=== PATIENT | female | born 1950 | race Caucasian/White ===

== ENCOUNTER 2018-10-04 13:51 | Outpatient (RCR) | payer SELFPAY ==
--- NOTE | 2019-01-31 11:45 | HP.PT.NRP ---
HP - Discharge Summary (1) - Patient Information SUKH NOBLE was seen in my office for initial evaluation on . The following Plan of Care was established for this patient: This patient was last seen in our office . Pertinent comments regarding their Physical therapy will appear below: At this point I will be discontinuing this patient from physical therapy. I would be happy to see this patient again in the future if found appropriate by the physician. Thank you! STEVE KumarT
== END 2018-10-04 19:00 | disposition home or self-care (01) ==
LOC: PT 13:51
PROVIDERS: Family Provider Family Medicine; PCP Family Medicine
DX: R69 Illness, unspecified (principal)

== ENCOUNTER 2019-04-27 16:30 | Outpatient (RCR) | payer SELFPAY ==
--- NOTE | 2019-10-03 10:54 | HP.PT.NRP ---
SUKH NOBLE was seen in my office for initial evaluation on . The following Plan of Care was established for this patient: This patient was last seen in our office . Pertinent comments regarding their Physical therapy will appear below: Self Pay Dry Needle-dc At this point I will be discontinuing this patient from physical therapy. I would be happy to see this patient again in the future if found appropriate by the physician. Thank you! STEVE KumarT
== END 2019-04-27 19:00 | disposition home or self-care (01) ==
LOC: PT 16:30
PROVIDERS: Family Provider Family Medicine; PCP Family Medicine
DX: R69 Illness, unspecified (principal)

== ENCOUNTER → 2020-01-31 12:26 | Outpatient (CLI) | payer MEDICARE, SELFPAY ==
[2015-11-20 01:56] VITALS: BMI 30.6
[2020-01-31 13:56] LABS: BUN 13 mg/dL (7-18); Creatinine, Serum 0.84 mg/dL (0.55-1.02); EST Glomerular Filtration Rate 71 mL/min (>60); Est Glom Filt Rate - Afr Amer 86 mL/min (>60)
== END ==
PROVIDERS: PCP Family Medicine; Visit Provider Nurse Practitioner Family
DX: Z79.899 Other long term (current) drug therapy (principal)
CPT/HCPCS: 36415; 82565; 84520

== ENCOUNTER 2021-07-01 09:14 | Emergency (ER) | payer OTHER, MEDICARE, SELFPAY ==
[2021-07-01 09:15] VITALS: BP 178/88; PULSE 72; RESP 16; TEMP 35.8; O2SAT 96; BMI 25.1
--- NOTE | 2021-07-01 09:39 | EDS_ITS ---
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 Another gentleman came in with a great Vlad as she asked if she could pet the dog. She was petting the dog when suddenly it turned and bit her. She is a large gaping laceration to the mid lower lip. She denies any other injury. [facility] Medical History Hypertension Home Medications gabapentin 300 mg PO TID 05/06/15 [History Last Taken Unknown] lansoprazole [Prevacid] 30 mg PO DAILY 05/06/15 [History Last Taken Unknown] ramipril 2.5 mg PO DAILY 05/06/15 [History Last Taken Unknown] simvastatin 20 mg PO QHS 05/06/15 [History Last Taken Unknown] cholecalciferol (vitamin D3) [Vitamin D3] 1,000 unit PO DAILY 05/21/15 [History Last Taken Unknown] amoxicillin-pot clavulanate 1 tab PO BID #10 tab 07/01/21 [Rx Last Taken Unknown] aspirin 81 mg PO DAILY 07/01/21 [History Last Taken Unknown] meloxicam 15 mg PO DAILY 07/01/21 [History Last Taken Unknown] oxycodone 7 mg PO Q4H PRN PRN 07/01/21 [History Last Taken Unknown] Allergy/AdvReac Type Severity Reaction Status Date / Time No Known Allergies Allergy Verified 07/01/21 09:16 Surgical History History of back surgery Hx of right knee surgery Social History Smoking Status: Former smoker ROS ROS ED Constitutional Constitutional ED: Denies chills or fever(s) Eyes Eyes: Denies change in vision ENT ENT ED: Denies sore throat Cardiovascular Cardiovascular: Denies chest pain Respiratory/Chest Respiratory/Chest: Denies cough or dyspnea Gastrointestinal Gastrointestinal: Denies abdominal pain, diarrhea, nausea or vomiting Genitourinary Genitourinary ED: Denies dysuria Musculoskeletal Musculoskeletal: Denies back pain Integumentary Denies rash Neurologic Neurologic: Denies headache(s) or weakness Allergic/Immunologic Allergic/Immunologic ED: Denies urticaria EXAM Physical Exam Const Vital Signs: 07/01/21 09:15 Temperature 96.4 F L Temperature Source Temporal Pulse Rate 72 Respiratory Rate 16 Blood Pressure 178/88 H Blood Pressure Mean 118 Pulse Ox 96 Oxygen Delivery Method Room Air Positive well nourished HEENT Reports moist mucous membranes HEENT Narrative: Teeth are stable. There is a 2 cm gaping laceration to the midportion of the lower lip. Eyes PERRL and EOMs intact bilaterally Neck supple Chest Wall inspection of chest normal and palpation of chest normal Resp normal respiratory effort and clear to auscultation bilaterally Cardio regular rate and regular rhythm GI non-tender Palpation: soft Extremity normal to inspection Neuro oriented x3 Sensorium / Orientation: alert Psych mental status grossly normal MDM MDM MDM Narrative Medical decision making narrative: Because of the gaping nature of the wound sutures will be required. Patient was informed of the risk of infection. She will be covered with 5 days of antibiotics. Initial dose of Augmentin given here. Treatment and Re-Evaluation Comments:: Wound cleansed and anesthetized with 2 cc of 1% lidocaine. Wound is cleansed and irrigated. Skin is closed with 4 simple entered sutures of 5-0 Vicryl. Prescription for additional Augmentin to be sent to the pharmacy for her. Procedures Lacerations Lip laceration: Length: 0.79 in Depth: Sub Q Suture Information: Vicryl, Simple and 5-0 Discharge Plan Triage Chief Complaint: Bite ED Provider: Mary Lou Escobedo Dx/Rx/DC Orders Clinical Impression: Dog bite, Laceration of lip Instructions: ED Dog Bite, ED Laceration, Lip or Mouth Prescriptions: New amoxicillin-pot clavulanate 875-125 mg tablet 1 tab PO BID Qty: 10 RF: 0 No Action simvastatin 20 MG tablet 20 mg PO QHS RF: 0 ramipril 2.5 MG capsule 2.5 mg PO DAILY RF: 0 lansoprazole [Prevacid] 30 MG capsule 30 mg PO DAILY RF: 0 gabapentin 300 MG capsule 300 mg PO TID RF: 0 cholecalciferol (vitamin D3) [Vitamin D3] 1,000 UNIT tablet 1,000 unit PO DAILY RF: 0 meloxicam 15 mg tablet 15 mg PO DAILY RF: 0 aspirin 81 mg Tablet 81 mg PO DAILY RF: 0 oxycodone 5 MG tablet 7 mg PO Q4H PRN PRN (Reason: Pain) RF: 0 Primary Care Provider: Darius Velez Referrals: Darius Velez DO [Primary Care Provider] - 1-2 Weeks Disposition Disposition: Home, Self Care
[2021-07-01] MEDS: Amox/Clavulanate 875 MG Tablet PO (09:50)
[2021-07-01] MEDS: Lidocaine 1% (20 ml mdv) 20 ML Vial INFILT (10:23)
== END 2021-07-01 23:59 | disposition home or self-care (01) ==
LOC: ED 10:15
PROVIDERS: Emergency Provider Emergency Medicine; PCP Family Medicine; Visit Provider Emergency Medicine
DX: S01.511A Laceration without foreign body of lip, initial encounter (principal); I10 Essential (primary) hypertension; Z87.891 Personal history of nicotine dependence; W54.0XXA Bitten by dog, initial encounter; Z79.82 Long term (current) use of aspirin; Z79.899 Other long term (current) drug therapy
CPT/HCPCS: 12011; 99284

== ENCOUNTER 2021-10-06 09:02 | Day surgery (SDC) | payer MEDICARE, SELFPAY ==
[2021-10-06 09:31] VITALS: BP 137/52; PULSE 60; RESP 18; TEMP 36.1; O2SAT 95; BMI 24.4
[2021-10-06] MEDS: Lactated Ringers 1,000 ML 15 ML IV (09:44)
[2021-10-06] MEDS: Cefazolin 2 GM in 0.9% Normal Saline 100 ML IV (10:40)
[2021-10-06] MEDS: Bupivacaine Mpf 0.5% 30 ML VIAL (10:58)
[2021-10-06] MEDS: Lidocaine 2% (20 ml mdv) 20 ML Vial (10:58)
--- NOTE | 2021-10-06 11:00 | RAD_ITS ---
PROCEDURE: Spinal cord stimulator implant. DATE OF EXAMINATION: 10/06/2021 INDICATION: Female, 71 years old. Chronic low back pain. FLUOROSCOPY TIME (if supplied): (4 minutes) minutes/seconds. 9 images were obtained. RAD/Lumbar Spine 2 or 3 Views IMPRESSION: Intraoperative imaging provided for spinal cord stimulator placement. Electronically Signed: Cole Staton MD at 12:56 EDT ,
[2021-10-06] MEDS: Bacitracin 500 UNITS/GM PACKET (12:22)
--- NOTE | 2021-10-06 12:37 | PCM.OPRPT ---
Report of Operation Date of Procedure: 10/06/21 Description of Surgical Findings:: Pre-Operative Diagnosis: Lumbosacral radiculopathy, lumbosacral degenerative disc disease, lumbosacral spinal stenosis, postlaminectomy syndrome of the lumbar spine Post-Operative Diagnosis: Lumbosacral radiculopathy, lumbosacral degenerative disc disease, lumbosacral spinal stenosis, postlaminectomy syndrome of the lumbar spine Surgery/Procedure Performed:: 1. Spinal cord stimulator thoracolumbar leads placement x2, 2- spinal cord stimulator Medtronic intellus generator placement #3 spinal cord stimulator generator pocket creation at the right gluteal region #4 spinal cord stimulator simple programming, 5-intraoperative fluoroscopic interpretation ANESTHESIA: MAC COMPLICATIONS: None BLOOD LOSS: <50 ml Implanted device: Spinal cord stimulator lead [id number] lot number [id number], lead #2 [id number] lot number [id number] Medtronic spinal cord stimulator generator intellus serial number [id number] PROCEDURE IN DETAIL: History and physical today was reviewed. Risks and benefits of procedure explained. The patient understood, agreed to procedure, informed consent was obtained. IV inserted per routine protocol. The patient was taken to the operating room, placed in the prone position with a pillow positioned underneath the abdomen. A 2 g of Ancef IV piggyback was infused per anesthesia. The lower back and left gluteal area was prepped and draped in a sterile fashion using iodine x3 Ioban was placed. The C-arm was brought in position for AP view at the L1-2 vertebral bodies under direct visualization fluoroscopy on a true AP view the L1-2 interlaminar space was identified skin and subcutaneous tissue and size approximately 10 cc of a mix of 2% lidocaine and 0.25% Marcaine using a 25-gauge regular needle followed by a 25-gauge 3-1/2 inch spinal needle towards the interlaminar space at L1-2, the skin and subcutaneous tissue were then anesthetized and using an 11-gauge blade was then taken down to the skin and subcutaneous tissue using a 14-gauge 3-1/2 inch Touhy needle provided by the Mob[employer] kit the needle was passed through the skin towards the interlaminar space at L1-2 and a paramedian approach the needle was then advanced under direct visualization fluoroscopy towards the interlaminar space at L1-2 [id number] technique was then carried to air towards the interlaminar space at L1-2 once the tip of the needle was in the epidural space and loss of resistance was encountered to air and after confirmation of AP as well as oblique view of the spinal cord stimulator lead was then advanced under direct visualization fluoroscopy to be at the tip of the lead at top of T8 and the bottom of the lead around mid T10 after confirmation of AP as well as lateral view to confirm correct placement of the lead in the posterior compartment of the epidural space the previous procedure was then repeated to the left the previous lead at L1-2 interlaminar space the second lead was then inserted under direct visualization with fluoroscopy to be at the mid T8 and mid T10 area the leads were were then connected to the external neurostimulator and patient was then awakened to confirm satisfactory coverage of the painful area once satisfactory coverage was then achieved the stylette of each needle was then removed and the skin and subcutaneous tissue on to the left of the paramedian needles was then taken anesthetized with a total of 10 cc of the previous mixture of 0.25% Marcaine and 2% lidocaine using a 25-gauge regular needle the incision was then taken down through the skin and subcutaneous tissue towards the fascia making sure hemostasis was then maintained via cautery, the spinal cord stimulator leads were then passed through the above incision and secured using the biwing and sutured down with a 2-0 silk to the fascia at that level the spinal cord stimulator leads were then tunneled via a tunneler provided by the [employer] kit towards the previously incised spinal cord stimulator battery at the right gluteal region skin and subcutaneous tissue were anesthetized with approximately 10 cc of a mix of 2% lidocaine and 0.25% Marcaine using a 25 gauge regular needle, skin and subcutaneous tissue was then taken down with the 11-gauge blade hemostasis was maintained with Bovie and direct pressure the incision was then taken down to the fascia and the battery was then secured with the 2-0 silk sutures that were the spinal cord stimulator leads the upper lead was then marked the new until spinal cord stimulator battery was then provided Via [employer] kit the battery was then reattached of the spinal cord stimulator make ensure that the left is attached to the top position from 0-7 electrodes and the bottom from 8-15 electrodes once impedance was then checked to be in the proper average number the intellus battery was then inserted into the pocket and impedance with when checked again the pocket was then inspected to confirm hemostasis in place, the intellus battery inserted into a Tyrx pouch and was then secured to the fascia using a 2-0 silk to the upper eyes of the battery confirming an upward writing of the intellus facing posterior, once complete confirmation the battery was then placed in the position and the the left mid paramedian and the gluteal incisions were then closed primarily through a 3-0 Vicryl in a running fashion followed by a 4-0 Monocryl to the skin, hemostasis was then maintained during the procedure the skin was then covered with a Steri-Strips and bacitracin patient was then returned into the supine position in a stable condition and returned to recovery in a stable condition patient experienced no signs or symptoms of intrathecal or intravascular injection patient experienced no paresthesia the procedure was completed without any apparent difficulty any complication the patient appeared to tolerate well, motor as well as sensory function was unchanged from prior to the procedure ASSESSMENT AND PLAN: This is a 71-year-old female with lumbosacral radiculopathy lumbosacral degenerative disc disease lumbosacral spinal stenosis, postlaminectomy syndrome of the lumbar spine status post 1. Spinal cord stimulator thoracolumbar leads placement x2 #2 spinal cord stimulator Medtronic intellus generator placement #3 spinal cord stimulator generator pocket creation at the right gluteal region #4 spinal cord stimulator simple programming, 5-intraoperative fluoroscopic interpretation patient will continue her current medications a prescription was provided to the patient Keflex 500 mg 1 p.o. every 8 hours for 7 days, postop instruction were given in writing to the patient as well as verbally, patient will follow approximately 1 week for reevaluation.
[2021-10-06 12:39] VITALS: BP 137/52; BP 145/70; PULSE 57; RESP 18; TEMP 36.7; O2SAT 98
[2021-10-06 12:45] VITALS: BP 137/52; BP 152/75; PULSE 53; RESP 16; O2SAT 98
[2021-10-06 12:50] VITALS: BP 137/52; BP 155/80; PULSE 53; RESP 16; O2SAT 96
[2021-10-06 13:00] VITALS: BP 137/52; BP 168/64; PULSE 54; RESP 16; TEMP 36.3; O2SAT 99
[2021-10-06 13:37] VITALS: BP 137/52
== END 2021-10-06 14:24 | disposition home or self-care (01) ==
LOC: SDC 09:05 → AC 09:06
PROVIDERS: PCP Family Medicine; Referring Provider Anesthesiology Pain Medicine; Visit Provider Anesthesiology Pain Medicine
PROC: (CPT 63685; principal; 2021-10-06 10:25)
DX: Z45.42 Encounter for adjustment and management of neurostimulator (principal); M51.17 Intervertebral disc disorders with radiculopathy, lumbosacral region; M96.1 Postlaminectomy syndrome, not elsewhere classified; M48.07 Spinal stenosis, lumbosacral region; K21.9 Gastro-esophageal reflux disease without esophagitis; I10 Essential (primary) hypertension; E78.5 Hyperlipidemia, unspecified; Z79.899 Other long term (current) drug therapy; Z87.891 Personal history of nicotine dependence; M53.3 Sacrococcygeal disorders, not elsewhere classified; Z79.891 Long term (current) use of opiate analgesic; M79.7 Fibromyalgia
CPT/HCPCS: 63685; 63650 ×2; 95971; 72100; 76000; C1778; C1820; J7120; J3490

== ENCOUNTER 2023-01-10 21:23 | Observation (INO) | payer MEDICARE, SELFPAY ==
[2023-01-10 21:24] VITALS: TEMP 35.8
[2023-01-10 21:28] VITALS: BP 177/75; PULSE 71; RESP 18; O2SAT 97
[2023-01-10 22:00] VITALS: BP 168/80; PULSE 67; RESP 18; O2SAT 93
[2023-01-10 22:05] LABS: Absolute Neutrophil Count 6.4 X10^3/uL (2.0-7.7); Basophil# 0.08 X10^3/uL; Basophil% 0.8 % (0-1); Eosinophil# 0.18 X10^3/uL; Eosinophils% 1.7 % (0-5); Hematocrit 41.7 % (37-47); Hemoglobin 14.2 g/dL (12.0-15.0); Lymphocyte % 25.6 % (19-41); Mean Corp Hgb Conc 34.1 g/dL (32-36); Mean Corpuscular Hgb 32.8 pg (27.0-32.0); Mean Corpuscular Volume 96.3 fL (81-99); Mean Platelet Vol. 10.1 fl (6.2-12.0); Monocyte# 1.04 X10^3/uL; Monocyte% 9.8 % (0-10); NRBC Flagged by Analyzer 0 % (0-5); Neutrophil # 6.44 X10^3/uL (2.7-7.7); Platelet Count 273 K/mm3 (150-450); RBC Distribution Width SD 53.1 fl (35.1-43.9); Red Blood Count 4.33 M/mm3 (4.2-5.4); White Blood Count 10.6 K/mm3 (4.4-11.0)
--- NOTE | 2023-01-10 22:07 | EDS_ITS ---
HPI History of Present Illness Chief Complaint: Syncope Informant: patient Onset/Context/Timing Onset: Today Narrative Narrative: Patient presents secondary to syncope. Patient states she was outside working in the yard all day and not drinking much water. She went to the [facility] and had 1 twisted tea. After sitting for about 45 minutes she stood up and felt lightheaded and dizzy. Bystanders later to the ground and had a very brief syncopal episode. She denies any palpitations or chest pain. She states she has numbness before when she gets dehydrated. [facility] Medical History Alcohol use Arthritis Excessive bleeding Former smoker Gastric reflux High cholesterol Hypertension Spinal cord stimulator status Wears contact lenses Wears dentures Wears glasses Home Medications gabapentin 300 mg capsule 300 mg PO TID 05/06/15 [History Last Taken Unknown] ramipril 2.5 mg capsule 5 mg PO DAILY 05/06/15 [History Last Taken 10/06/21 5 mg] simvastatin 20 mg tablet 40 mg PO QHS 05/06/15 [History Last Taken Unknown] cholecalciferol (vitamin D3) 25 mcg (1,000 unit) tablet (Vitamin D3) 1,000 unit PO DAILY 05/21/15 [History Last Taken Unknown] aspirin 81 mg tablet 81 mg PO DAILY 07/01/21 [History Last Taken Unknown] meloxicam 15 mg tablet 15 mg PO DAILY 07/01/21 [History Last Taken Unknown] hydrocodone 7.5 mg-acetaminophen 325 mg tablet 1 tab PO TID PRN PRN Pain 10/03/21 [History Last Taken Unknown] omeprazole 40 mg capsule,delayed release 40 mg PO DAILY 10/03/21 [History Last Taken 10/06/21 40 mg] Allergy/AdvReac Type Severity Reaction Status Date / Time No Known Allergies Allergy Verified 01/10/23 21:26 Surgical History History of back surgery History of colonoscopy Hx of right knee surgery Social History Smoking Status: Current some day smoker tobacco type: cigarettes and cigars ROS ROS ED Constitutional Constitutional ED: Denies chills or fever(s) Eyes Eyes: Denies change in vision ENT ENT ED: Denies rhinorrhea or sore throat Cardiovascular Cardiovascular: Denies chest pain or palpitations Respiratory/Chest Respiratory/Chest: Denies cough or dyspnea Gastrointestinal Gastrointestinal: Denies abdominal pain, nausea or vomiting Genitourinary Genitourinary ED: Denies dysuria Musculoskeletal Musculoskeletal: Denies back pain or extremity pain Integumentary Denies Abrasions or rash Neurologic Neurologic: Denies headache(s) or weakness Psychiatric Psychiatric: Denies anxiety or depression Allergic/Immunologic Allergic/Immunologic ED: Denies lip swelling or urticaria EXAM Physical Exam Const Vital Signs: 01/10/23 21:24 01/10/23 21:28 01/10/23 21:57 Temperature 96.4 F L Temperature Source Temporal Pulse Rate Respiratory Rate Respiratory Effort Normal Non-Labored Respiratory Pattern Normal Blood Pressure Blood Pressure Mean Pulse Ox Oxygen Delivery Method Room Air Room Air 01/10/23 22:00 01/10/23 21:28 Temperature Temperature Source Pulse Rate 67 71 Respiratory Rate 18 18 Respiratory Effort Respiratory Pattern Blood Pressure 168/80 H 177/75 H Blood Pressure Mean 109 109 Pulse Ox 93 97 Oxygen Delivery Method Room Air Room Air Positive well nourished and well developed General Appearance ED: well developed HEENT Reports normocephalic and head/scalp atraumatic Eyes PERRL and EOMs intact bilaterally Neck supple Chest Wall inspection of chest normal and palpation of chest normal Resp normal respiratory effort and clear to auscultation bilaterally Cardio regular rate and regular rhythm GI normal to inspection, nondistended, normoactive bowel sounds Palpation: soft Extremity normal to inspection Neuro oriented x3 and no sensory deficits noted Sensorium / Orientation: alert Motor Exam: strength 5/5 throughout Psych mental status grossly normal Skin no rashes or lesions noted MDM MDM MDM Narrative Medical decision making narrative: Patient placed on motor vehicles supervisor. EKG obtained to evaluate for cardiac arrhythmia/ischemia. Labwork obtained to evaluate for leukocytosis, anemia, and electrolyte derangement. Patient has a liter IV fluids hanging from EMS and this liter will be continued. Lab Data Attestation: I reviewed the patient's lab results. Labs: Laboratory Results - last 24 hr 01/10/23 21:30 WBC 10.6 RBC 4.33 Hgb 14.2 Hct 41.7 MCV 96.3 MCH 32.8 H MCHC 34.1 RDW Std Deviation 53.1 H RDW Coeff of Yudi 15.0 H Plt Count 273 MPV 10.1 Immature Gran % (Auto) 1.100 H Neut % (Auto) 61.0 Lymph % (Auto) 25.6 [place] % (Auto) 9.8 Eos % (Auto) 1.7 Baso % (Auto) 0.8 Absolute Neuts (auto) 6.4 Absolute Lymphs (auto) 2.70 Nucleated RBC % 0 Sodium 125 L Potassium 4.0 Chloride 95 L Carbon Dioxide 25.0 Anion Gap 5 BUN 14 Creatinine 1.24 H Est GFR (MDRD) Af Amer 54 L Est GFR (MDRD) Non-Af 45 L BUN/Creatinine Ratio 11.3 Glucose 125 H Calcium 8.6 Treatment and Re-Evaluation :: On repeat evaluation patient feels well. EKG is sinus at 70 with no acute ischemia. CBC reveals normal white count at 10.6 and normal hemoglobin of 14.2. Chemistry studies reveal sodium low at 125. I do not have records here since 2014, but was able to find outside records from 2019. At that time her sodium was 139. Her BUN is 14 and her creatinine is 1.24. In 2020 her creatinine was 0.84. Patient has completed the 1 L of IV fluids from EMS. I will continue her IV fluids at 150. Given her hyponatremia with a syncopal episode I did recommend observation overnight for further hydration. She also has evidence of mild MADISON. I will speak with the hospitalist. Discharge Plan Triage Chief Complaint: Syncope ED Provider: Mary Lou Escobedo Dx/Rx/DC Orders Clinical Impression: MADISON (acute kidney injury), Hyponatremia, Syncope Prescriptions: No Action simvastatin 20 MG tablet 40 mg PO QHS Patient Comments: cholesterol ramipril 2.5 MG capsule 5 mg PO DAILY gabapentin 300 MG capsule 300 mg PO TID Patient Comments: nerve pain cholecalciferol (vitamin D3) [Vitamin D3] 1,000 UNIT tablet 1,000 unit PO DAILY Patient Comments: SUPPLEMENT meloxicam 15 mg tablet 15 mg PO DAILY aspirin 81 mg Tablet 81 mg PO DAILY omeprazole 40 mg Capsule,Delayed Release(Dr/Ec) 40 mg PO DAILY hydrocodone-acetaminophen 7.5-325 mg tablet 1 tab PO TID PRN PRN (Reason: Pain) Patient Comments: 1 TABLET BY MOUTH 3 TIMES A DAY NEEDED FOR PAIN Primary Care Provider: Darius Velez Referrals: Darius Velez DO [Primary Care Provider] - Disposition Disposition: Acute Care Hospital [facility]
[2023-01-10 22:22] LABS: Anion Gap 5 (5-15); BUN 14 mg/dL (7-18); BUN/Creat Ratio 11.3 RATIO (10-20); Calcium,Total 8.6 mg/dL (8.5-10.1); Chloride 95 mmol/L (98-107); Creatinine, Serum 1.24 mg/dL (0.55-1.02); EST Glomerular Filtration Rate 45 mL/min (>60); Est Glom Filt Rate - Afr Amer 54 mL/min (>60); Glucose 125 mg/dL (74-106); Sodium Level 125 mmol/L (136-145)
[2023-01-10 22:52] VITALS: BP 167/88; PULSE 76; RESP 18; O2SAT 97
--- NOTE | 2023-01-10 23:01 | PCM.HP.STD ---
HPI - General General Date of Admission: 01/10/23 Date of Service: 01/11/23 Chief Complaint: Syncope HPI Narrative SUKH NOBLE, is a 72 F with a significant history of hypertension, GERD, chronic back pain with spinal stimulator who presents to the emergency department for fall. Reportedly patient went to [employer] where she had twisted tea. Of note she did not take excessive amounts more than she usually takes. She got up from a sitting position and became lightheaded. She was staring to space. She told bystanders that she felt lightheaded. Before she realized she had been laid on the ground by bystanders.. At the emergency department patient was found to have low sodium and increase in the kidney function. She reported she easily get dehydrated. [facility] Medical History Alcohol use Arthritis Chronic pain Excessive bleeding Former smoker Gastric reflux High cholesterol Hypertension Spinal cord stimulator status Wears contact lenses Wears dentures Wears glasses Home Medications gabapentin 300 mg capsule 300 mg PO TID 05/06/15 [History Last Taken Unknown] ramipril 2.5 mg capsule 5 mg PO DAILY 05/06/15 [History Last Taken 10/06/21 5 mg] simvastatin 20 mg tablet 40 mg PO QHS 05/06/15 [History Last Taken Unknown] cholecalciferol (vitamin D3) 25 mcg (1,000 unit) tablet (Vitamin D3) 1,000 unit PO DAILY 05/21/15 [History Last Taken Unknown] aspirin 81 mg tablet 81 mg PO DAILY 07/01/21 [History Last Taken Unknown] meloxicam 15 mg tablet 15 mg PO DAILY 07/01/21 [History Last Taken Unknown] hydrocodone 7.5 mg-acetaminophen 325 mg tablet 1 tab PO TID PRN PRN Pain 10/03/21 [History Last Taken Unknown] omeprazole 40 mg capsule,delayed release 40 mg PO DAILY 10/03/21 [History Last Taken 10/06/21 40 mg] latanoprost 0.005 % eye drops 1 drp ophthalmic (eye) DAILY 01/10/23 [History Last Taken Unknown] ramipril 10 mg capsule 10 mg PO DAILY 01/10/23 [History Last Taken Unknown] simvastatin 40 mg tablet 40 mg PO QHS 01/10/23 [History Last Taken Unknown] tretinoin 0.1 % topical cream applic topical 01/10/23 [History Last Taken Unknown] Allergy/AdvReac Type Severity Reaction Status Date / Time No Known Allergies Allergy Verified 01/10/23 21:26 Family History Other Cancer Surgical History History of back surgery History of colonoscopy Hx of right knee surgery Social History Smoking Status: Former smoker ROS ROS Narrative Pertinent positives and pertinent negatives as noted in HPI. All other systems were reviewed and are negative Vital Signs Vital Signs Vital Signs: 01/10/23 21:24 01/10/23 21:28 01/10/23 21:57 Temperature 96.4 F L Temperature Source Temporal Pulse Rate Respiratory Rate Respiratory Effort Normal Non-Labored Respiratory Pattern Normal Blood Pressure Blood Pressure Mean Pulse Ox Oxygen Delivery Method Room Air Room Air 01/10/23 22:00 01/10/23 21:28 01/10/23 22:52 Temperature Temperature Source Pulse Rate 67 71 76 Respiratory Rate 18 18 18 Respiratory Effort Respiratory Pattern Blood Pressure 168/80 H 177/75 H 167/88 H Blood Pressure Mean 109 109 114 Pulse Ox 93 97 97 Oxygen Delivery Method Room Air Room Air Room Air Physical Exam Narrative Physical exam: General: Well-nourished, well-developed. Head: Normocephalic, atraumatic, no tenderness Eyes: Vision is grossly intact. EOMI ENT, no trauma, moist mucous membranes, no rhinorrhea Neck: Nontender, No thyromegaly. CVS: Regular rate and rhythm. S1-S2 present. No murmur, gallop or rub. Respiratory : clear to auscultation bilaterally, chest wall nontender Abdomen: Soft, nontender, nondistended, normal bowel sounds, no masses : Deferred Back: Nontender, no CVA tenderness, no midline spinal tenderness, deformities, step-offs Extremities: Nontender full range of motion, no trauma Skin: Normal color, no trauma, abrasions Neuro: Alert, oriented, cranial nerves II through XII grossly intact. Psychiatry: Normal mood. Normal affect. Not depressed. Not anxious. Results Lab / Micro Data 01/11/23 05:10 01/10/23 21:30 Labs: Laboratory Results - last 24 hr 01/10/23 21:30: WBC 10.6, RBC 4.33, Hgb 14.2, Hct 41.7, MCV 96.3, MCH 32.8 H, MCHC 34.1, RDW Std Deviation 53.1 H, RDW Coeff of Yudi 15.0 H, Plt Count 273, MPV 10.1, Immature Gran % (Auto) 1.100 H, Neut % (Auto) 61.0, Lymph % (Auto) 25.6, [place] % (Auto) 9.8, Eos % (Auto) 1.7, Baso % (Auto) 0.8, Absolute Neuts (auto) 6.4, Absolute Lymphs (auto) 2.70, Nucleated RBC % 0, Sodium 125 L, Potassium 4.0, Chloride 95 L, Carbon Dioxide 25.0, Anion Gap 5, BUN 14, Creatinine 1.24 H, Est GFR (MDRD) Af Amer 54 L, Est GFR (MDRD) Non-Af 45 L, BUN/Creatinine Ratio 11.3, Glucose 125 H, Calcium 8.6 Assessment & Plan Assessment/Plan (1) Syncope: QUALIFIERS: Syncope type: unspecified Qualified Code(s): R55 - Syncope and collapse (2) Hyponatremia: (3) MADISON (acute kidney injury): PLAN: Plan Syncope EKG independently reviewed sinus rhythm with no ST or T wave abnormalities. EKG was independently interpreted Echocardiogram ordered. Orthostatic vitals per protocol IV fluids ordered. Hyponatremia and hypochloremia Sodium on presentation was 125. Chloride level of 95 Check uric acid Check urine osmolarity Check urine sodium Check serum osmolality Trend BMP Acute kidney injury Creatinine of 1.24 on presentation. Last Creatinine was from 01/31/2020. And creatinine at time was 0.84. Gentle IV hydration. Avoid nephrotoxic's Chronic back pain Stable Home pain regimen continued. DVT prophylaxis subcutaneous Lovenox ordered Time spent in the patient's overall evaluation,decision-making process, review of diagnostic data, adjustment of management, discussion with other providers, nursing nursing and ancillary staff involved in patient's care documentation, 60 minutes Charges/Coding Visit Charges Inpatient E&M: 62563 Init Hosp L3
[2023-01-10 23:07] VITALS: BP 165/70; PULSE 75; RESP 18; TEMP 36.6; O2SAT 95
[2023-01-10] MEDS: 0.9% Normal Saline 1,000 ML 150 ML IV (23:07)
[2023-01-10 23:08] VITALS: BMI 30.4
[2023-01-11] VITALS (8 sets, daily range): BP systolic 148–188; BP diastolic 72–93; PULSE 60–77; RESP 16–18; TEMP 36.4–36.8; O2SAT 97–98; BMI 28.0
--- NOTE | 2023-01-11 00:37 | ECHOD_ITS ---
Reason For Study: Syncope/Near Syncope Procedure This was a 2D Doppler, Color Flow transthoracic echocardiogram. Exam performed portable in patient room. Left Ventricle Normal LV size. Left ventricular systolic function is normal. The left ventricular ejection fraction is 70 %. Diastolic function is indeterminate. Right Ventricle Normal RV size. Normal systolic function. Atria The left and right atria are normal. Bubble contrast study negative for right to left interatrial shunt. Aneurysmal atrial septum. Mitral Valve Trivial mitral valve insufficiency. Tricuspid Valve Normal tricuspid valve. Trivial tricuspid valve insufficiency. Right ventricular systolic pressure estimated to be 28 mmHg. Aortic Valve Mild focal aortic valve thickening. Trisinus/trileaflet aortic valve. Aortic sclerosis, no stenosis. There is no aortic stenosis. Trivial aortic valve insufficiency. Pulmonic Valve The pulmonic valve is not well visualized. Trivial pulmonic valve insufficiency. Great Vessels Normal aortic root. Pericardium/Pleural No pericardial effusion. Medication Performed a rapid injection of agitated mix of 9 cc saline and 1cc air to assess for atrial septal defect. MMode/2D Measurements & Calculations LVIDd: 3.9 cm IVSd: 1.1 cm Ao root diam: 3.4 cm LVIDs: 1.9 cm LVPWd: 1.1 cm RVDd: 3.2 cm FS: 51.4 % LAV(MOD-bp): 33.0 ml LVAd ap4: 23.4 cm2 SV(MOD-sp4): 41.5 ml LAV(MOD-bp) Indexed: 19.5 ml/m2 LVLd ap4: 7.2 cm LAV(MOD-sp2): 37.9 ml EDV(MOD-sp4): 61.5 ml LAV(MOD-sp4): 27.1 ml EDV(sp4-el): 64.3 ml LVAs ap4: 11.6 cm2 LVLs ap4: 5.8 cm ESV(MOD-sp4): 20.1 ml ESV(sp4-el): 19.8 ml EF(MOD-sp4): 67.4 % EF(sp4-el): 69.2 % SV(sp4-el): 44.5 ml LA A4 area: 11.8 cm2 LA dimension(2D): 3.9 cm RA A4 area: 7.3 cm2 TAPSE: 2.0 cm Time Measurements MV dec time: 0.29 sec Doppler Measurements & Calculations MV E max thony: 64.8 cm/sec Lat Peak E' Thony: 7.3 cm/sec Med Peak E' Thony: 5.6 cm/sec MV A max thony: 99.4 cm/sec E/E' lat: 8.9 E/E' med: 11.5 MV E/A: 0.65 MV dec slope: 225.3 cm/sec2 Ao V2 max: 149.7 cm/sec LV V1 max: 114.7 cm/sec Ao max P.0 mmHg LV V1 max P.3 mmHg Ao V2 mean: 97.6 cm/sec LV V1 mean P.2 mmHg Ao mean P.4 mmHg LV V1 mean: 84.8 cm/sec Ao V2 VTI: 33.4 cm LV V1 VTI: 27.8 cm AV (velocity ratio): 0.83 PA V2 max: 103.5 cm/sec TR max thony: 252.0 cm/sec TR max P.4 mmHg ECHO/Echo Complete Interpretation Summary The left ventricular ejection fraction is 70 %. Diastolic function is indeterminate. Aneurysmal atrial septum. Aortic sclerosis, no stenosis. Bubble contrast study negative for right to left interatrial shunt. Ordering Physician: Cristian Asher Referring Physician: Darius Velez Performed By: Lila Sanders, CALI, RVT
[2023-01-11] MEDS: 0.9% Normal Saline 1,000 ML 125 ML IV ×2 (00:57→10:23)
[2023-01-11] MEDS: Gabapentin 300 MG Capsule PO ×2 (05:05→13:34)
[2023-01-11] MEDS: HYDROcodone Bitartrate/Apap 5/325 Tablet PO (05:11)
[2023-01-11 05:49] LABS: Absolute Lymphocyte Count 1.78 X10^3/uL (0.83-4.51); Absolute Neutrophil Count 6.3 X10^3/uL (2.0-7.7); Basophil# 0.07 X10^3/uL; Basophil% 0.8 % (0-1); Eosinophil# 0.16 X10^3/uL; Eosinophils% 1.8 % (0-5); Hematocrit 40.5 % (37-47); Hemoglobin 13.6 g/dL (12.0-15.0); Lymphocyte # 1.78 X10^3/ul (0.83-4.51); Lymphocyte % 19.5 % (19-41); Mean Corp Hgb Conc 33.6 g/dL (32-36); Mean Corpuscular Volume 95.3 fL (81-99); Mean Platelet Vol. 9.8 fl (6.2-12.0); Monocyte# 0.76 X10^3/uL; Monocyte% 8.3 % (0-10); NRBC Flagged by Analyzer 0 % (0-5); Neutrophil # 6.32 X10^3/uL (2.7-7.7); Neutrophil % 69.1 % (47-70); Platelet Count 242 K/mm3 (150-450); RBC Distribution Width CV 15.1 % (11.6-14.6); RBC Distribution Width SD 52.4 fl (35.1-43.9); Red Blood Count 4.25 M/mm3 (4.2-5.4); White Blood Count 9.1 K/mm3 (4.4-11.0)
[2023-01-11 06:27] LABS: Anion Gap 2 (5-15); BUN 11 mg/dL (7-18); BUN/Creat Ratio 12.4 RATIO (10-20); Calcium,Total 8.4 mg/dL (8.5-10.1); Chloride 109 mmol/L (98-107); Creatinine, Serum 0.88 mg/dL (0.55-1.02); EST Glomerular Filtration Rate 67 mL/min (>60); Est Glom Filt Rate - Afr Amer 81 mL/min (>60); Estimated Creatinine Clearance 42.96 ml/min; Glucose 82 mg/dL (74-106); Potassium 4.3 mmol/L (3.5-5.1); Sodium Level 135 mmol/L (136-145)
[2023-01-11 06:43] LABS: Thyroid Stim Hormone (TSH) 2.54 uIU/mL (0.358-3.74); Uric Acid 4.6 mg/dL (2.6-6.0)
--- NOTE | 2023-01-11 06:53 | PCM.PN.HOSP ---
Reason for Visit Reason for Visit: Diagnoses Hypo-osmolality and hyponatremia (01/10/23) Acute kidney failure, unspecified (01/10/23) Syncope and collapse (01/10/23) Subjective Subjective Patient with no acute events per self or nursing report overnight. She notes feeling improved following overnight hydration. She does admit that she did not eat much yesterday nor did she drink anything and was working outside in the yard all day and then went to get food with friends as well as 1 alcoholic beverage when she did pass out. She states this is occurred 1 time prior and was related at that time again with dehydration and poor oral intake. Patient denies fevers, chills, nausea, emesis, abdominal pain, chest pain or dyspnea. Objective Data Objective Data Vital Signs: Vital Signs Temp Pulse Resp BP Pulse Ox O2 Del Method 97.8 F 71 16 169/72 H 97 Room Air 01/11/23 05:03 01/11/23 05:03 01/11/23 05:03 01/11/23 05:03 01/11/23 05:03 01/11/23 05:03 Oxygen Delivery Method Room Air Weight: 148 lb 9.465 oz Body Mass Index (BMI) 28.0 Intake & Output: Intake and Output for Last 24 Hours 01/09/23 01/10/23 01/11/23 23:59 23:59 23:59 Intake Total 355 / 355 Balance 355 / 355 Lab / Micro Data 01/11/23 05:10 01/11/23 05:10 Labs: Laboratory Results - last 24 hr 01/10/23 21:30: WBC 10.6, RBC 4.33, Hgb 14.2, Hct 41.7, MCV 96.3, MCH 32.8 H, MCHC 34.1, RDW Std Deviation 53.1 H, RDW Coeff of Yudi 15.0 H, Plt Count 273, MPV 10.1, Immature Gran % (Auto) 1.100 H, Neut % (Auto) 61.0, Lymph % (Auto) 25.6, [place] % (Auto) 9.8, Eos % (Auto) 1.7, Baso % (Auto) 0.8, Absolute Neuts (auto) 6.4, Absolute Lymphs (auto) 2.70, Nucleated RBC % 0, Sodium 125 L, Potassium 4.0, Chloride 95 L, Carbon Dioxide 25.0, Anion Gap 5, BUN 14, Creatinine 1.24 H, Est GFR (MDRD) Af Amer 54 L, Est GFR (MDRD) Non-Af 45 L, BUN/Creatinine Ratio 11.3, Glucose 125 H, Calcium 8.6 01/11/23 05:10: WBC 9.1, RBC 4.25, Hgb 13.6, Hct 40.5, MCV 95.3, MCH 32.0, MCHC 33.6, RDW Std Deviation 52.4 H, RDW Coeff of Yudi 15.1 H, Plt Count 242, MPV 9.8, Immature Gran % (Auto) 0.500, Neut % (Auto) 69.1, Lymph % (Auto) 19.5, [place] % (Auto) 8.3, Eos % (Auto) 1.8, Baso % (Auto) 0.8, Absolute Neuts (auto) 6.3, Absolute Lymphs (auto) 1.78, Nucleated RBC % 0, Sodium 135 L, Potassium 4.3, Chloride 109 H, Carbon Dioxide 24.0, Anion Gap 2 L, BUN 11, Creatinine 0.88, Estim Creat Clear Calc 42.96, Est GFR (MDRD) Af Amer 81, Est GFR (MDRD) Non-Af 67, BUN/Creatinine Ratio 12.4, Glucose 82, Uric Acid 4.6, Calcium 8.4 L, TSH 2.54 Physical Exam Narrative Physical Examination: General: Awake, alert, oriented x 3 and cooperative, seated upright in the PCU bed, fatigued otherwise no acute distress. Skin: Normal color, normal turgor, no icterus, no cyanosis. HEENT: AT/NC, EOMI, PERRLA, MMM. Lungs: CTA bilaterally, moderate effort, mild decrease BL bases, no rales, ronchi or wheezing. Heart: Regular rate and rhythm; no gallop, rub audible. Abdomen: Soft, NTTP, ND, mildly hyperactive BS. Extremities: No cyanosis, clubbing, or edema. Neurological: Patient awake, alert, oriented as noted, cognitive function intact; pupils equally reactive to light and accommodation, cranial nerves II-XII grossly normal, moving all 4 extremities, no focal deficits, strength improved, preserved. Psychiatric: Affect appears mildly fatigued otherwise normal, no acute evidence of depressive or anxiety feelings. Assessment & Plan Assessment/Plan (1) Syncope: QUALIFIERS: Syncope type: unspecified Qualified Code(s): R55 - Syncope and collapse PLAN: Plan The patient is a 72 y/o F w/ PMHx: Chronic pain syndrome with chronic spinal stimulator, HTN, HLD, Former tobacco use, OA who presents to the [facility] ED on 01/10/23 with history of alcohol intake the day prior and unfortunately upon getting up from a sitting to a standing position became lightheaded eventually laid on the ground by bystanders prompting EMS call prompting ED evaluation. #1. Syncopal Event suspected secondary to hypovolemia/dehydration: ED presentation labs with sodium 125 and history of recent alcohol intake on a significantly hot day in a facility that has primarily outside CT. Admitted to PCU, maintain on telemetry monitoring, cardiac enzymes were unremarkable, TSH 2.54 normal, cortisol 13.30 normal, urine osmolality and sodium were obtained however patient with reliable dehydration story and significantly improved just with overnight hydration with sodium repeat 01/11/2023 135. ECHO ordered per admission to be cautious. Will obtain orthostatic assessment. If ECHO not marked and orthostatics normal would plan discharge to home given significant improvement. #2. Acute kidney injury: Secondary to dehydration, improved. Admission BUN/Cr 14/1.24 which is increased from a baseline of 0.8, aggressively hydrated, repeat 01/11/2023 BUN/creatinine normalized with 11/0.88. #3. Chronic pain syndrome: Patient with chronic back pain status post spinal stimulator, we will continue patient home hydrocodone as well as gabapentin regimen, maintain on fall precautions and encourage positional changes slowly. #4. Hypertension: Given MADISON has resolved will restart patient home low-dose ramipril regimen. #5. Hyperlipidemia: We will continue patient on statin therapy. #6. GERD: We will continue patient on PPI. #7. Former tobacco use: Encourage tobacco cessation. #8. DVT prophylaxis: Lovenox. #9. CODE STATUS: Full code. Charges/Coding Visit Charges Inpatient E&M: 12895 Subs Hosp L2
[2023-01-11 08:13] LABS: Osmolality, Serum 280 mOsm/KG (280-301)
[2023-01-11 08:44] LABS: Osmolality, Urine 171 mOsm/KG
[2023-01-11 08:48] LABS: Urine Sodium 45 mmol/L (Not Establ.)
[2023-01-11] MEDS: Meloxicam 15 MG Tablet PO (10:23)
[2023-01-11] MEDS: Pantoprazole Sodium 40 MG Tablet PO (10:23)
[2023-01-11 10:24] LABS: Magnesium 2.3 mg/dL (1.6-2.6)
[2023-01-11] MEDS: Cholecalciferol (VIT D3) 25 MCG TABLET (1,000 UNITS) PO (10:24)
[2023-01-11] MEDS: Aspirin 81 MG TAB.CHEW PO (10:24)
--- NOTE | 2023-01-11 15:00 | DCINST_ITS ---
Discharge Instructions Diet Discharge Diet: Low fat / Low cholesterol (Strongly also encourage appropriate oral hydration and food intake to avoid recurrent syncopal events.) Activity Discharge Activity: - (Please avoid excessive activity in the heat/outside until re-evaluation.) May resume sexual activity in: No Restrictions Dressing / Incision Call your doctor if you observe: Fever of 101 or Higher, Numbness or Tingling, Shortness of breath, Dizziness, Fainting spells, Swelling in the ankles, Chest pain, Increased palpitations (irregular heartbeat) and Calf discomfort Follow Up Care Test Results: Test results from this visit will be discussed in further detail at your follow- up appointment, if applicable. Discharge Plan Admission Admit Date/Time: 01/10/23 23:05 Primary Reason for Your Visit: Syncopal event, Hyponatremia, Dehydration Attending Provider: Alley Mckinney Primary Care Provider: Darius Velez Consulting Providers: Cristian Asher Instructions Patient Instructions: ED Dehydration (Adult) Discharge Orders/Prescriptions Prescriptions: Continued gabapentin 300 MG capsule 300 mg PO TID Patient Comments: nerve pain cholecalciferol (vitamin D3) [Vitamin D3] 1,000 UNIT tablet 1,000 unit PO DAILY Patient Comments: SUPPLEMENT meloxicam 15 mg tablet 15 mg PO DAILY aspirin 81 mg Tablet 81 mg PO DAILY omeprazole 40 mg Capsule,Delayed Release(Dr/Ec) 40 mg PO DAILY hydrocodone-acetaminophen 7.5-325 mg tablet 1 tab PO TID PRN PRN (Reason: Pain) Patient Comments: 1 TABLET BY MOUTH 3 TIMES A DAY NEEDED FOR PAIN latanoprost 0.005 % drops 1 drp ophthalmic (eye) DAILY ramipril 10 mg capsule 10 mg PO DAILY tretinoin 0.1 % cream TOPICAL simvastatin 40 mg tablet 40 mg PO QHS Discontinued simvastatin 20 MG tablet 40 mg PO QHS Patient Comments: cholesterol ramipril 2.5 MG capsule 5 mg PO DAILY Referrals / Follow Up: Darius Velez DO [Primary Care Provider] - (Follow-up within 3-5 days to rev iew admission.) Disposition Disposition (needs filled in before D/C Order can be placed): Home, Self Care
--- NOTE | 2023-01-11 15:08 | DS.PCM_ITS ---
Providers Date of Admission: 01/10/23 Date of Discharge: 01/11/23 Primary Care Physician: Dr. Darius Velez DO Reason For Visit: SYNCOPE, HYPONATREMIA, MADISON Diagnosis Discharge Diagnosis (1) Syncope: Status: Acute Code(s): R55 - Syncope and collapse Qualifiers: Syncope type: unspecified Qualified Code(s): R55 - Syncope and collapse Plan: Discharge Diagnoses: #1. Syncopal Event suspected secondary to Acute Hyponatremia secondary to Acute hypovolemia/dehydration w/ associated #2 #2. Acute kidney injury, Secondary to dehydration (Cr >1.5 baseline at presentation) #3. Chronic pain syndrome #4. Hypertension #5. Hyperlipidemia #6. GERD #7. Former tobacco use #8. CODE STATUS: Full code. Medications at Discharge Home Medications gabapentin 300 mg capsule 300 mg PO TID 05/06/15 cholecalciferol (vitamin D3) 25 mcg (1,000 unit) tablet (Vitamin D3) 1,000 unit PO DAILY 05/21/15 aspirin 81 mg tablet 81 mg PO DAILY 07/01/21 meloxicam 15 mg tablet 15 mg PO DAILY 07/01/21 hydrocodone 7.5 mg-acetaminophen 325 mg tablet 1 tab PO TID PRN PRN Pain 10/03/21 omeprazole 40 mg capsule,delayed release 40 mg PO DAILY 10/03/21 latanoprost 0.005 % eye drops 1 drp ophthalmic (eye) DAILY 01/10/23 ramipril 10 mg capsule 10 mg PO DAILY 01/10/23 simvastatin 40 mg tablet 40 mg PO QHS 01/10/23 tretinoin 0.1 % topical cream applic topical 01/10/23 Hospital Course Procedures 2-D Echocardiogram and EKG Summary of Care Provided Minutes Spent on Discharge: 35 Hospital Course: The patient is a 72 y/o F w/ PMHx: Chronic pain syndrome with chronic spinal stimulator, HTN, HLD, Former tobacco use, OA who presented to the [facility] ED on 01/10/23 with history of alcohol intake the day prior and unfortunately upon getting up from a sitting to a standing position became lightheaded eventually laid on the ground by bystanders prompting EMS call prompting ED evaluation. Patient did admit to significant work outside in the heat for prolonged period and poor oral intake as well as minimal water with than 1 alcoholic beverage prior to onset of her syncopal event. ED presentation labs with sodium 125 and history of recent alcohol intake on a significantly hot day in a facility that has primarily outside CT. Admitted to PCU, maintained on telemetry monitoring, TSH 2.54 normal, cortisol 13.30 normal, urine osmolality and sodium were obtained however patient with reliable dehydration story and significantly improved just with overnight hydration with sodium repeat 01/11/2023 135. ECHO ordered per admission to be cautious and results pending at discharge but given significant clinical improvements and clear upfront etiology of dehydration as patient very eager for discharge she was discharged to home prior to results with plan of care to be to notify her if these were abnormal. Patient also upon presentation with MADISON given creatinine 1.5 times greater than her baseline, admission BUN/Cr 14/1.24 which is increased from a baseline of 0.8, aggressively hydrated, repeat 01/11/2023 BUN/creatinine normalized with 11/0.88, given improvement resumed patient nephrotoxic medication. Given clinical improvement and stable appearance patient discharged to home in stable condition with planned PCP follow-up within 3 to 5 days for reevaluation following hospitalization evaluation and work-up. Weight / BMI Weight Weight: 148 lb 9.465 oz Body Mass Index (BMI) 28.0 ABG / Lab / Microbiology Data 01/11/23 05:10 01/11/23 05:10 Laboratory: Laboratory Results - last 24 hr 01/10/23 21:30: WBC 10.6, RBC 4.33, Hgb 14.2, Hct 41.7, MCV 96.3, MCH 32.8 H, MCHC 34.1, RDW Std Deviation 53.1 H, RDW Coeff of Yudi 15.0 H, Plt Count 273, MPV 10.1, Immature Gran % (Auto) 1.100 H, Neut % (Auto) 61.0, Lymph % (Auto) 25.6, M [place] % (Auto) 9.8, Eos % (Auto) 1.7, Baso % (Auto) 0.8, Absolute Neuts (auto) 6.4, Absolute Lymphs (auto) 2.70, Nucleated RBC % 0, Sodium 125 L, Potassium 4.0, Chloride 95 L, Carbon Dioxide 25.0, Anion Gap 5, BUN 14, Creatinine 1.24 H, Est GFR (MDRD) Af Amer 54 L, Est GFR (MDRD) Non-Af 45 L, BUN/Creatinine Ratio 11.3, Glucose 125 H, Calcium 8.6 01/11/23 05:10: WBC 9.1, RBC 4.25, Hgb 13.6, Hct 40.5, MCV 95.3, MCH 32.0, MCHC 33.6, RDW Std Deviation 52.4 H, RDW Coeff of Yudi 15.1 H, Plt Count 242, MPV 9.8, Immature Gran % (Auto) 0.500, Neut % (Auto) 69.1, Lymph % (Auto) 19.5, [place] % (Auto) 8.3, Eos % (Auto) 1.8, Baso % (Auto) 0.8, Absolute Neuts (auto) 6.3, Absolute Lymphs (auto) 1.78, Nucleated RBC % 0, Sodium 135 L, Potassium 4.3, Chloride 109 H, Carbon Dioxide 24.0, Anion Gap 2 L, BUN 11, Creatinine 0.88, Estim Creat Clear Calc 42.96, Est GFR (MDRD) Af Amer 81, Est GFR (MDRD) Non-Af 67, BUN/Creatinine Ratio 12.4, Glucose 82, Serum Osmolality 280, Uric Acid 4.6, Calcium 8.4 L, Magnesium 2.3, TSH 2.54, Cortisol 13.30 01/11/23 07:50: Urine Osmolality 171, Ur Random Sodium 45 D/C Instructions Discharge Diet: Low fat / Low cholesterol (Strongly also encourage appropriate oral hydration and food intake to avoid recurrent syncopal events.) May resume sexual activity in: No Restrictions Call your doctor if you observe: Fever of 101 or Higher, Numbness or Tingling, Shortness of breath, Dizziness, Fainting spells, Swelling in the ankles, Chest pain, Increased palpitations (irregular heartbeat) and Calf discomfort Meaningful Use Info Meaningful Use Diagnoses (Choose all that apply): None applicable Discharge Plan Admission Admit Date/Time: 01/10/23 23:05 Primary Reason for Your Visit: Syncopal event, Hyponatremia, Dehydration Attending Provider: Alley Mckinney Primary Care Provider: Darius Velez Consulting Providers: Cristian Asher Instructions Patient Instructions: ED Dehydration (Adult) Discharge Orders/Prescriptions Prescriptions: Continued gabapentin 300 MG capsule 300 mg PO TID Patient Comments: nerve pain cholecalciferol (vitamin D3) [Vitamin D3] 1,000 UNIT tablet 1,000 unit PO DAILY Patient Comments: SUPPLEMENT meloxicam 15 mg tablet 15 mg PO DAILY aspirin 81 mg Tablet 81 mg PO DAILY omeprazole 40 mg Capsule,Delayed Release(Dr/Ec) 40 mg PO DAILY hydrocodone-acetaminophen 7.5-325 mg tablet 1 tab PO TID PRN PRN (Reason: Pain) Patient Comments: 1 TABLET BY MOUTH 3 TIMES A DAY NEEDED FOR PAIN latanoprost 0.005 % drops 1 drp ophthalmic (eye) DAILY ramipril 10 mg capsule 10 mg PO DAILY tretinoin 0.1 % cream TOPICAL simvastatin 40 mg tablet 40 mg PO QHS Discontinued simvastatin 20 MG tablet 40 mg PO QHS Patient Comments: cholesterol ramipril 2.5 MG capsule 5 mg PO DAILY Referrals / Follow Up: Darius Velez DO [Primary Care Provider] - (Follow-up within 3-5 days to review admission.) Disposition Disposition (needs filled in before D/C Order can be placed): Home, Self Care Charges/Coding Visit Charges Inpatient E&M: 28155 Disch Hosp >30min
--- NOTE | 2023-01-11 15:10 | PHA.DC.MR.R ---
Pharmacy [place] Med Reconciliation Pharmacy Service has performed discharge medication reconciliation for this patient. The patient's discharge medication list was reviewed for discrepancies and discrepancies were resolved. Medications at Discharge Home Medications gabapentin 300 mg capsule 300 mg PO TID 05/06/15 cholecalciferol (vitamin D3) 25 mcg (1,000 unit) tablet (Vitamin D3) 1,000 unit PO DAILY 05/21/15 aspirin 81 mg tablet 81 mg PO DAILY 07/01/21 meloxicam 15 mg tablet 15 mg PO DAILY 07/01/21 hydrocodone 7.5 mg-acetaminophen 325 mg tablet 1 tab PO TID PRN PRN Pain 10/03/21 omeprazole 40 mg capsule,delayed release 40 mg PO DAILY 10/03/21 latanoprost 0.005 % eye drops 1 drp ophthalmic (eye) DAILY 01/10/23 ramipril 10 mg capsule 10 mg PO DAILY 01/10/23 simvastatin 40 mg tablet 40 mg PO QHS 01/10/23 tretinoin 0.1 % topical cream applic topical 01/10/23
--- NOTE | 2023-01-11 15:21 | CASEMGMT ---
Patient had order for discharge. RN CM in to discuss needs at discharge with patient. Patient denies needs at discharge. Patient had no further questions or concerns at this time.
== END 2023-01-11 15:04 | disposition home or self-care (01) ==
LOC: ED 22:39 → PCU 01-11 00:23
PROVIDERS: Admitting Provider Hospitalist; Emergency Provider Emergency Medicine; PCP Family Medicine; Visit Provider Family Medicine
DX: E86.0 Dehydration (principal); N17.9 Acute kidney failure, unspecified; R55 Syncope and collapse; Z79.82 Long term (current) use of aspirin; I10 Essential (primary) hypertension; G89.4 Chronic pain syndrome; K21.9 Gastro-esophageal reflux disease without esophagitis; E87.1 Hypo-osmolality and hyponatremia; F17.210 Nicotine dependence, cigarettes, uncomplicated; E78.00 Pure hypercholesterolemia, unspecified; F17.290 Nicotine dependence, other tobacco product, uncomplicated; Z79.899 Other long term (current) drug therapy; I08.3 Combined rheumatic disorders of mitral, aortic and tricuspid valves
CPT/HCPCS: 36415; 80048; 82533; 83735; 83930; 83935; 84300; 84443; 84550; 85025; 93005; 93306; 96360; 96361; 97802; 99221; 99285; J7030; A4216; G0378

== ENCOUNTER → 2023-02-08 | Outpatient (CLI) | payer MEDICARE, SELFPAY ==
[2023-02-08 13:56] LABS: BUN 8 mg/dL (7-18); Creatinine, Serum 0.85 mg/dL (0.55-1.02); EST Glomerular Filtration Rate 70 mL/min (>60); Est Glom Filt Rate - Afr Amer 84 mL/min (>60)
== END | disposition home or self-care (01) ==
PROVIDERS: PCP Family Medicine; Visit Provider Nurse Practitioner Acute Care
DX: Z79.899 Other long term (current) drug therapy (principal)
CPT/HCPCS: 36415; 82565; 84520

== ENCOUNTER 2023-12-22 12:39 | Outpatient (RCR) | payer SELFPAY | END 2023-12-22 19:00 | disposition home or self-care (01) | LOC: PT 12:39 | PROVIDERS: PCP Family Medicine | DX: R69 Illness, unspecified (principal) ==

== ENCOUNTER 2023-12-26 17:51 | Emergency (ER) | payer MEDICARE, SELFPAY ==
[2023-12-26 17:51] VITALS: BP 114/94; PULSE 54; RESP 16; TEMP 36.2; O2SAT 97
[2023-12-26 18:00] VITALS: BP 137/79; PULSE 50; RESP 16; O2SAT 98
--- NOTE | 2023-12-26 18:52 | EX.ED.DYSGE1 ---
HPI History of Present Illness Chief Complaint: General Illness Detail of Chief Complaint: Not feeling well and concern for allergic reaction Informant: patient Narrative Narrative: Patient presents to the emergency department complaint of not feeling well and concerns for allergic reaction to a new medication she took today Cymbalta. Patient states that she took Cymbalta around 8:30 AM. Around 1 PM she started feeling lightheaded and dizzy and felt hot. She read the package insert and these were some symptoms that could be attributed to Cymbalta. Patient denies chest pain or shortness of breath. She denies recent illness. She denies urinary symptoms. She denies headache or falls or head injuries. She is taking the Cymbalta for chronic nerve pain. [facility] Medical History Alcohol use Arthritis Chronic pain Excessive bleeding Former smoker Gastric reflux High cholesterol Hypertension Spinal cord stimulator status Wears contact lenses Wears dentures Wears glasses Home Medications ?Medication ?Instructions ?Recorded ?Last Taken ?Type gabapentin 300 mg capsule 300 mg PO TID 05/06/15 Unknown History cholecalciferol (vitamin D3) 25 1,000 unit PO DAILY 05/21/15 Unknown History mcg (1,000 unit) tablet (Vitamin D3) meloxicam 15 mg tablet 15 mg PO DAILY 07/01/21 Unknown History hydrocodone 7.5 mg-acetaminophen 1 tab PO TID PRN PRN Pain 10/03/21 Unknown History 325 mg tablet omeprazole 40 mg capsule,delayed 40 mg PO DAILY 10/03/21 10/06/21 History release 40 mg latanoprost 0.005 % eye drops 1 drp ophthalmic (eye) DAILY 01/10/23 Unknown History ramipril 10 mg capsule 10 mg PO BID 01/10/23 Unknown History simvastatin 40 mg tablet 40 mg PO DAILY 01/10/23 Unknown History tretinoin 0.1 % topical cream applic topical 01/10/23 Unknown History timolol maleate 0.5 % eye drops 1 drp ophthalmic (eye) Q12H 12/26/23 Unknown History Allergy/AdvReac Type Severity Reaction Status Date / Time No Known Allergies Allergy Verified 12/26/23 17:51 Family History Other Cancer Surgical History History of back surgery History of colonoscopy Hx of right knee surgery Social History Smoking Status: Former smoker ROS ROS ED Review of Systems ROS Unobtainable: other Constitutional Constitutional ED: Reports lethargy; Denies chills, fever(s), sweats or weight loss Eyes Eyes: Denies blurry vision, change in vision or diplopia ENT ENT ED: Denies rhinorrhea or sore throat Cardiovascular Cardiovascular: Denies chest pain, orthopnea or racing heartbeat Respiratory/Chest Respiratory/Chest: Denies cough, dyspnea, dyspnea on exertion, orthopnea or sputum Gastrointestinal Gastrointestinal: Denies abdominal pain, diarrhea, nausea or vomiting Genitourinary Genitourinary ED: Denies dysuria, hematuria or urinary frequency Musculoskeletal Musculoskeletal: Denies arthralgias, back pain, myalgias or neck pain Integumentary Denies abscess, Abrasions or rash Neurologic Neurologic: Reports other Details: Dizziness/lightheadedness ; Denies headache(s) or weakness Psychiatric Psychiatric: Denies anxiety, depression or suicidal thoughts Endocrine Endocrinology: Denies polydipsia, polyphagia or polyuria Hematologic/Lymphatic Hematologic/Lymphatic: Denies easy bleeding, easy bruising or lymphadenopathy Allergic/Immunologic Allergic/Immunologic ED: Denies mouth swelling, tongue swelling or urticaria EXAM Physical Exam Const Vital Signs: 12/26/23 17:51 12/26/23 18:00 12/26/23 18:01 Temperature 97.1 F L Temperature Source Temporal Pulse Rate 54 L 50 L Pulse Rate [Lying] Pulse Rate [Sitting (for 1 minute prior to obtaining)] Respiratory Rate 16 16 Respiratory Pattern Normal Blood Pressure 114/94 H 137/79 H Blood Pressure [Lying] Blood Pressure [Sitting (for 1 minute prior to obtaining)] Blood Pressure Mean 100 98 Blood Pressure Mean [Lying] Blood Pressure Mean [Sitting (for 1 minute prior to obtaining)] Pulse Ox 97 98 Oxygen Delivery Method Room Air Room Air 12/26/23 19:58 Temperature Temperature Source Pulse Rate Pulse Rate [Lying] 55 L Pulse Rate [Sitting (for 1 minute prior to obtaining)] 59 L Respiratory Rate Respiratory Pattern Blood Pressure Blood Pressure [Lying] 199/87 H Blood Pressure [Sitting (for 1 minute prior to obtaining)] 179/82 H Blood Pressure Mean Blood Pressure Mean [Lying] 124 Blood Pressure Mean [Sitting (for 1 minute prior to obtaining)] 114 Pulse Ox Oxygen Delivery Method Positive well nourished and well developed General Appearance ED: well developed and NAD HEENT Reports TM's clear and moist mucous membranes normocephalic and atraumatic; Negative for trauma or tenderness Tympanic Membrane ED: Yes TM's clear Eyes PERRL and EOMs intact bilaterally General Eye ED: Negative for pale conjunctiva or scleral icterus Neck no lymphadenopathy, supple and no JVD General: Negative for tenderness Chest Wall inspection of chest normal and palpation of chest normal Chest: Negative for tenderness Resp normal respiratory effort and clear to auscultation bilaterally Effort and Inspection: Negative for respiratory distress or pain with movement Auscultation: Negative for rhonchi, wheezes or diminished lung sounds Cardio regular rate, regular rhythm, S1 normal heart sound, S2 normal heart sound and no murmurs Peripheral Pulses: pulses 2+ throughout GI normal to inspection, nondistended, normoactive bowel sounds, soft to palpation, non-tender, non-distended and no masses Back/Spine no CVA tenderness and no thoracic nor lumbar tenderness Extremity normal to inspection General Extremety ED: Negative for edema General Extremity: Negative for edema Neuro oriented x3, CN's II-XII intact bilaterally, no sensory deficits noted and gait normal Neuro Narrative: Finger-nose and heel arzola testing within normal limits, negative Romberg, negative , Fundi benign NIH stroke scale is a 0. Patient had Hallpike maneuver performed and it was no evidence of nystagmus or reproduction of her symptoms. Sensorium / Orientation: awake, alert, oriented to person, oriented to place and oriented to time Motor Exam: strength 5/5 throughout and strength abnormal Psych mental status grossly normal Skin no rashes or lesions noted and no wounds MDM MDM MDM Narrative Medical decision making narrative: Patient presents to the emergency department with complaint of feeling lightheaded and dizzy and hot. She thinks it could be attributed to the Cymbalta that she started today. She read the list of side effects that seem to coincide. She otherwise not been ill. She denies chest pain or shortness of breath. Denies headache. EKG obtained arrival shows sinus rhythm with ventricular rate 51 bpm with no acute ST segment changes. CBC with differential, 7.5 with hemoglobin 14.5 and platelet count 228. Chemistries unremarkable. Urinalysis was normal. CT scan of the brain without contrast showed chronic involutional changes. COVID flu and RSV testing was negative. Hallpike maneuver here was negative for nystagmus. Orthostatic vital signs were ordered and patient had a hard time standing due to the complaint of dizziness. After an observation period in the emergency department I had nursing staff ambulate her and she currently denies any dizziness or complaints and feels well. I feel she can be safely discharged to home. I advise she discontinue his Cymbalta until she speaks with her pain management doctor about this. Patient advised to return if recurrent symptoms or difficulty ambulating or condition should worsen anyway. Lab Data Attestation: I reviewed the patient's lab results. Labs: Laboratory Results - last 24 hr 12/26/23 12/26/23 18:43 20:07 WBC 7.5 RBC 4.47 Hgb 14.5 Hct 42.1 MCV 94.2 MCH 32.4 H MCHC 34.4 RDW Std Deviation 49.6 H RDW Coeff of Yudi 14.1 Plt Count 228 MPV 10.7 Immature Gran % (Auto) 0.300 Neut % (Auto) 68.1 Lymph % (Auto) 19.9 [place] % (Auto) 7.2 Eos % (Auto) 3.7 Baso % (Auto) 0.8 Absolute Neuts (auto) 5.1 Absolute Lymphs (auto) 1.50 Nucleated RBC % 0 Sodium 131 L Potassium 4.3 Chloride 102 Carbon Dioxide 23.0 Anion Gap 6 BUN 8 Creatinine 0.76 Est GFR (MDRD) Af Amer 96 Est GFR (MDRD) Non-Af 79 BUN/Creatinine Ratio 10.6 Glucose 112 H Calcium 8.6 Troponin I High Sens 6 Urine Color Yellow Urine Clarity Clear Urine pH 8.0 Ur Specific [place] 1.015 Urine Protein Negative Urine Glucose (UA) Normal Urine Ketones Negative Urine Occult Blood Negative Urine Nitrite Negative Urine Bilirubin Negative Urine Urobilinogen Normal Ur Leukocyte Esterase 100 H Urine RBC 0 SEEN Urine WBC 5-10 SEEN Ur Squamous Epith Cells 0-5 SEEN Urine Bacteria 1+ Urine Mucus 0 SEEN Radiography Diagnostic Testing: Clinical Impression(s) from Imaging Studies Brain CT 12/26/23 20:06 IMPRESSION: No CT evidence of acute intracranial hemorrhage or injury. Atherosclerosis. Electronically Signed: Rudy Aldana MD at 21:00 EDT , EKG Initial EKG: Attestation: I personally reviewed and interpreted this EKG as follows: Comments: Sinus tachycardia with rate of [address] changes Discharge Plan Triage Chief Complaint: General Illness ED Provider: Hoa Lawton Dx/Rx/DC Orders Clinical Impression: Medication side effect, Dizziness Instructions: ED ADVERSE DRUG REACTION Allergic, ED Dizziness, Uncertain Cause Prescriptions: No Action gabapentin 300 MG capsule 300 mg PO TID Patient Comments: nerve pain cholecalciferol (vitamin D3) [Vitamin D3] 1,000 UNIT tablet 1,000 unit PO DAILY Patient Comments: SUPPLEMENT meloxicam 15 mg tablet 15 mg PO DAILY omeprazole 40 mg Capsule,Delayed Release(Dr/Ec) 40 mg PO DAILY hydrocodone-acetaminophen 7.5-325 mg tablet 1 tab PO TID PRN PRN (Reason: Pain) Patient Comments: 1 TABLET BY MOUTH 3 TIMES A DAY NEEDED FOR PAIN latanoprost 0.005 % drops 1 drp ophthalmic (eye) DAILY ramipril 10 mg capsule 10 mg PO BID tretinoin 0.1 % cream TOPICAL simvastatin 40 mg tablet 40 mg PO DAILY timolol maleate 0.5 % drops 1 drp ophthalmic (eye) Q12H Patient Comments: 1 drop in both eyes twice a day Primary Care Provider: Darius Velez Referrals: Darius Velez DO [Primary Care Provider] - 3-5 Days Activity Restrictions/Additional Instructions: Week with Dr. Naranjo regarding your Cymbalta continuing it or starting a different medications. It is possible to Cymbalta may have caused her symptoms today. Print Language: Tamazight Disposition Disposition: Home, Self Care
[2023-12-26] MEDS: 0.9% Normal Saline (1000mL) 1,000 ML 150 ML IV (19:16)
[2023-12-26 19:29] LABS: Absolute Neutrophil Count 5.1 X10^3/uL (2.0-7.7); Basophil# 0.06 X10^3/uL; Basophil% 0.8 % (0-1); Eosinophil# 0.28 X10^3/uL; Eosinophils% 3.7 % (0-5); Hematocrit 42.1 % (37-47); Hemoglobin 14.5 g/dL (12.0-15.0); Lymphocyte % 19.9 % (19-41); Mean Corp Hgb Conc 34.4 g/dL (32-36); Mean Corpuscular Hgb 32.4 pg (27.0-32.0); Mean Corpuscular Volume 94.2 fL (81-99); Mean Platelet Vol. 10.7 fl (6.2-12.0); Monocyte# 0.54 X10^3/uL; Monocyte% 7.2 % (0-10); NRBC Flagged by Analyzer 0 % (0-5); Neutrophil # 5.13 X10^3/uL (2.7-7.7); Neutrophil % 68.1 % (47-70); Platelet Count 228 K/mm3 (150-450); RBC Distribution Width CV 14.1 % (11.6-14.6); RBC Distribution Width SD 49.6 fl (35.1-43.9); Red Blood Count 4.47 M/mm3 (4.2-5.4); White Blood Count 7.5 K/mm3 (4.4-11.0)
[2023-12-26 19:39] LABS: Anion Gap 6 (5-15); BUN 8 mg/dL (7-18); BUN/Creat Ratio 10.6 RATIO (10-20); Calcium,Total 8.6 mg/dL (8.5-10.1); Chloride 102 mmol/L (98-107); Creatinine, Serum 0.76 mg/dL (0.55-1.02); EST Glomerular Filtration Rate 79 mL/min (>60); Est Glom Filt Rate - Afr Amer 96 mL/min (>60); Glucose 112 mg/dL (74-106); Potassium 4.3 mmol/L (3.5-5.1); Sodium Level 131 mmol/L (136-145); Troponin-I HS 6 pg/mL (3.0-54.0)
[2023-12-26 19:58] VITALS: BP 179/82; BP 199/87; PULSE 55; PULSE 59
[2023-12-26 20:02] VITALS: BMI 26.0
--- NOTE | 2023-12-26 20:06 | CT_ITS ---
INDICATION: dizziness EXAMINATION: CT BRAIN - CT Head or Brain W/O Contrast Injection TECHNIQUE: Multiple axial images were obtained of the head without intravenous contrast. A radiation dose optimization technique was used for this scan. IV Contrast dosage and agent: None. COMPARISON: None FINDINGS: BRAIN PARENCHYMA: No intra- or extra-axial hemorrhage. No evidence of acute infarct. No intracranial mass or mass effect. Unremarkable white matter for age. There is preservation of the desai/white matter interface. Posterior fossa structures are unremarkable. Carotid and vertebral atherosclerosis. CSF SPACES: Cerebral volume appropriate for age. No hydrocephalus. Basal cisterns are patent. CALVARIUM, SKULL BASE, PARANASAL SINUSES AND MASTOID AIR CELLS: No acute osseous finding. [place]al sinuses are clear. Mastoid air cells are clear. ORBITS: Both globes, extraocular muscles, optic nerves and retrobulbar fat appear unremarkable. ASPECTS Score for Acute Strokes: 10 CT/Brain/Head without Contrast IMPRESSION: No CT evidence of acute intracranial hemorrhage or injury. Atherosclerosis. Electronically Signed: Rudy Aldana MD at 21:00 EDT ,
[2023-12-26 20:27] LABS: Mucous, Urine 0 SEEN /hpf (<or=2+); Red Blood Cells-Urine 0 SEEN /hpf (0-5)
[2023-12-26 20:28] LABS: Color, Urine Yellow (Yellow); Glucose, Dipstick Normal (Normal); Ketone-Dipstick Negative (Negative); Leukocyte Esterase-Dipstick 100 /ul (Negative); Nitrite-Dipstick Negative (Negative); Occult Blood-Urine Negative /ul (Negative); Protein-Dipstick Negative (Negative); Specific Gravity, Urine 1.015 (1.002-1.030); Urine Bilirubin Dipstick Negative (Negative); Urine Clarity Clear (Clear); Urine Urobilinogen Normal (Normal)
[2023-12-26 20:41] LABS: Bacteria 1+ /hpf (None Seen); Squamous Epithelial Cells - UA 0-5 SEEN /hpf (5-10); White Blood Cells 5-10 SEEN /hpf (0-5)
[2023-12-26 22:57] VITALS: BP 196/91; PULSE 60; RESP 16; O2SAT 96
[2023-12-26] MEDS: Ramipril 10 MG Capsule PO (22:58)
[2023-12-26 22:59] VITALS: BP 202/96; PULSE 59; RESP 16; TEMP 36.8; O2SAT 95
--- NOTE | 2023-12-26 23:07 | ED.RN ---
PT WITH BP 202/[address] BURNS NOTIFIED. DR. BURNS STATES THAT PATIENT IS OKAY TO DISCHARGE LONG SHE IS NOT EXPERIENCING ANY SYMPTOMS. PT DENIES COMPLAINTS OTHER THAN CHRONIC BACK PAIN.
== END 2023-12-26 23:06 | disposition home or self-care (01) ==
PROVIDERS: Emergency Provider Emergency Medicine; PCP Family Medicine; Visit Provider Emergency Medicine
DX: R42 Dizziness and giddiness (principal); T43.215A Adverse effect of selective serotonin and norepinephrine reuptake inhibitors, initial encounter; Z11.52 Encounter for screening for COVID-19; I10 Essential (primary) hypertension; E78.00 Pure hypercholesterolemia, unspecified; G89.29 Other chronic pain; Z79.899 Other long term (current) drug therapy; Z87.891 Personal history of nicotine dependence
CPT/HCPCS: 70450; 80048; 81001; 84484; 85025; 87631; 93005; 96360; 96361; 99284; J7030

== ENCOUNTER → 2024-01-11 | Outpatient (CLI) | payer MEDICARE, SELFPAY ==
--- NOTE | 2024-01-11 15:35 | RAD_ITS ---
INDICATION: PAIN EXAMINATION/TECHNIQUE: X-RAY - XR Spine Lumbar Min 4 Views COMPARISON: No relevant prior comparison study available FINDINGS: Surgical hardware with posterior vertical bars and pedicle screws at presumed L4-5. The vertebral bodies are normal in height. There is minimal anterior subluxation of L3 on L4, just above the surgical hardware, approximately 5 mm. Marked interspace narrowing at L3-4. Mild disc space narrowing and osteophytes throughout the remaining levels. Facet arthropathy bilaterally most pronounced at L2-3 and L3-4. No paravertebral soft tissue mass identified. Aortic calcifications. Device overlying the right gluteal region with electrodes extending to the thoracic level. RAD/L/S Spine Min 4 Views IMPRESSION: Postsurgical changes L4-5. Degenerative changes with anterolisthesis at L3-4. Electronically Signed: Gladys Dela Cruz MD at 8:06 EDT ,
== END | disposition home or self-care (01) ==
PROVIDERS: PCP Family Medicine; Referring Provider Anesthesiology Pain Medicine; Visit Provider Anesthesiology Pain Medicine
DX: M96.1 Postlaminectomy syndrome, not elsewhere classified (principal)
CPT/HCPCS: 72110

== ENCOUNTER → 2024-06-27 | Outpatient (CLI) | payer MEDICARE, SELFPAY ==
--- NOTE | 2024-06-27 15:24 | RAD_ITS ---
EXAM: XR Left Hip With Pelvis When Performed, 2 or 3 Views CLINICAL INDICATION: TECHNIQUE: Two or three views of the left hip with pelvis when performed. COMPARISON: No relevant prior studies available. FINDINGS: BONES/JOINTS: Unremarkable. No acute fracture. No dislocation. SOFT TISSUES: Unremarkable. RAD/HIP, UNI W/ Pelvis 2-3 Views IMPRESSION: Normal left hip x-rays. Reading [facility]
== END | disposition home or self-care (01) ==
LOC: MTRAD 15:23
PROVIDERS: PCP Family Medicine; Referring Provider Clinical Nurse Specialist Adult Health; Visit Provider Clinical Nurse Specialist Adult Health
DX: M25.552 Pain in left hip (principal)
CPT/HCPCS: 73502

== ENCOUNTER 2024-07-11 13:57 | Emergency (ER) | payer MEDICARE, SELFPAY ==
[2024-07-11 13:59] VITALS: BP 179/93; PULSE 72; RESP 16; TEMP 36.6; O2SAT 97; BMI 25.6
--- NOTE | 2024-07-11 14:02 | RAD_ITS ---
PROCEDURE: CHEST 1 VIEW (PORTABLE) REASON FOR EXAM: Chest pain TECHNIQUE: Frontal and lateral views of the chest. COMPARISON: None. FINDINGS: The heart size is normal. There are atherosclerotic calcifications of the thoracic aorta. The lungs are clear. The bones are unremarkable. Spinal stimulator leads in the midline. RAD/Chest 1 View (Portable) IMPRESSION: No radiographic evidence of acute cardiopulmonary disease Reading Location: [facility]
--- NOTE | 2024-07-11 14:04 | RAD_ITS ---
EXAM: HAND MIN 3 VIEWS CLINICAL HISTORY: Swelling following a recent fall. COMPARISON: None. TECHNIQUE: Three views were obtained. FINDINGS: Nondisplaced oblique fracture through the midportion of the 3rd and 4th metacarpals with the diffuse soft tissue swelling. RAD/Hand Min 3 Views IMPRESSION: Nondisplaced oblique fractures of the 3rd and 4th metacarpals with overlying so ft tissue swelling. Reading Location: [facility]
[2024-07-11 14:34] LABS: Absolute Lymphocyte Count 2.04 X10^3/uL (0.83-4.51); Absolute Neutrophil Count 5.3 X10^3/uL (2.0-7.7); Basophil# 0.07 X10^3/uL; Basophil% 0.8 % (0-1); Eosinophil# 0.45 X10^3/uL; Eosinophils% 5.1 % (0-5); Hematocrit 44.7 % (37-47); Hemoglobin 15.1 g/dL (12.0-15.0); Lymphocyte # 2.04 X10^3/ul (0.83-4.51); Lymphocyte % 23.1 % (19-41); Mean Corp Hgb Conc 33.8 g/dL (32-36); Mean Corpuscular Hgb 32.7 pg (27.0-32.0); Mean Corpuscular Volume 96.8 fL (81-99); Mean Platelet Vol. 10.2 fl (6.2-12.0); Monocyte# 0.99 X10^3/uL; Monocyte% 11.2 % (0-10); NRBC Flagged by Analyzer 0 % (0-5); Neutrophil # 5.27 X10^3/uL (2.7-7.7); Neutrophil % 59.6 % (47-70); Platelet Count 235 K/mm3 (150-450); RBC Distribution Width CV 13.5 % (11.6-14.6); Red Blood Count 4.62 M/mm3 (4.2-5.4); White Blood Count 8.8 K/mm3 (4.4-11.0)
[2024-07-11 14:51] LABS: Anion Gap 5 (5-15); BUN 7 mg/dL (7-18); BUN/Creat Ratio 8.5 RATIO (10-20); Calcium,Total 8.9 mg/dL (8.5-10.1); Chloride 107 mmol/L (98-107); Creatinine, Serum 0.82 mg/dL (0.55-1.02); EST Glomerular Filtration Rate 72 mL/min (>60); Est Glom Filt Rate - Afr Amer 87 mL/min (>60); Glucose 92 mg/dL (74-106); Potassium 3.9 mmol/L (3.5-5.1); Sodium Level 137 mmol/L (136-145); Troponin-I HS (w/2H Reflex) 5 pg/mL (3.0-54.0)
--- NOTE | 2024-07-11 14:54 | RAD_ITS ---
PROCEDURE: CHEST 1 VIEW REASON FOR EXAM: Fallen and sternal plain TECHNIQUE: Frontal and lateral views of the chest. COMPARISON: None. FINDINGS: The heart size is normal. There are atherosclerotic calcifications of the thoracic aorta. The lungs are clear. The bones are unremarkable. Transducer wires noted in the midline. RAD/Chest 1 View IMPRESSION: No radiographic evidence of acute cardiopulmonary disease Reading Location: [place]
--- NOTE | 2024-07-11 14:56 | ED.VIS.FALL ---
HPI HPI - Fall History of Present Illness Chief Complaint: Chest Pain Detail of Chief Complaint: Left hand and chest wall pain after a fall last . Informant: patient Occured/Mechanism Occurred: Days Mechanism/Context: Yes same level fall and Yes slip Usually ambulates: Without assistance Pain/Injury Pain Location: chest and upper extremity (Left hand) Quality of Pain: Sharp Current Severity: Moderate Maximum Severity: Moderate Associated Symptoms Associated Symptoms: Negative for Parasthesias, Weakness, Loss of function, Inability to ambulate, Loss of consciousness or Amnesia Narrative Narrative: 74-year-old female history of chronic pain and hypertension. On oxycodone at home. She was bringing [place] and into [place] last she slipped on an AC area. Fell forward and struck her sternum on the wheelbarrow and injured her left hand. She has not been seen for this before today. Complaining of sternal and left hand pain. No LOC. No head injury. Said the pain really got worse on Wednesday. Denies being on any blood thinners. Prior similar symptoms: No Recent Illness/Hospitalization: No PFSH PFS Medical History Chronic pain Syncope Spinal cord stimulator status Wears glasses Wears contact lenses Wears dentures Alcohol use Arthritis Excessive bleeding High cholesterol Gastric reflux Former smoker Hypertension Home Medications ?Medication ?Instructions ?Recorded ?Last Taken ?Type gabapentin 300 mg capsule 300 mg PO TID 05/06/15 Unknown History cholecalciferol (vitamin D3) 25 1,000 unit PO DAILY 05/21/15 Unknown History mcg (1,000 unit) tablet (Vitamin D3) meloxicam 15 mg tablet 15 mg PO DAILY 07/01/21 Unknown History hydrocodone 7.5 mg-acetaminophen 1 tab PO TID PRN PRN Pain 10/03/21 Unknown History 325 mg tablet omeprazole 40 mg capsule,delayed 40 mg PO DAILY 10/03/21 10/06/21 History release 40 mg latanoprost 0.005 % eye drops 1 drp ophthalmic (eye) DAILY 01/10/23 Unknown History ramipril 10 mg capsule 10 mg PO BID 01/10/23 Unknown History simvastatin 40 mg tablet 40 mg PO DAILY 01/10/23 Unknown History tretinoin 0.1 % topical cream applic topical 01/10/23 Unknown History timolol maleate 0.5 % eye drops 1 drp ophthalmic (eye) Q12H 12/26/23 Unknown History prednisone 10 mg tablet 10 mg PO DAILY #30 tabs 01/25/24 Unknown Rx valacyclovir 1 gram tablet 1,000 mg PO TID #21 tabs 01/25/24 Unknown Rx Allergy/AdvReac Type Severity Reaction Status Date / Time No Known Allergies Allergy Verified 07/11/24 13:59 Family History Other Cancer Surgical History History of colonoscopy Hx of right knee surgery History of back surgery Social History Smoking Status: Former smoker ROS ROS ED ROS Narrative Denies recent illness. Chest pain only after the fall. No recent exertional chest pain. No history of DVT or PE. No hemoptysis. No recent travel or surgery. Constitutional Constitutional ED: Denies chills or fever(s) Eyes Eyes: Denies blurry vision ENT ENT ED: Denies ear pain Cardiovascular Cardiovascular: Reports chest pain; Denies palpitations or racing heartbeat Respiratory/Chest Respiratory/Chest: Denies cough, dyspnea or dyspnea on exertion Gastrointestinal Gastrointestinal: Denies abdominal pain, constipation, diarrhea, melena, nausea or vomiting Genitourinary Genitourinary ED: Denies dysuria or hematuria Musculoskeletal Musculoskeletal: Denies arthralgias Integumentary Denies abscess Neurologic Neurologic: Denies headache(s) Psychiatric Psychiatric: Denies anxiety or depression Endocrine Endocrinology: Denies polydipsia Hematologic/Lymphatic Hematologic/Lymphatic: Denies easy bleeding Allergic/Immunologic Allergic/Immunologic ED: Denies mouth swelling EXAM Physical Exam Narrative Exam Narrative: 74-year-old female vital signs are stable afebrile. Pulse ox 97% on room air no hypoxia. Sitting upright in bed. No distress. No one else in the room besides the nurse and myself. No family present. H EENT exam pupils round react to light. Motions are intact. No trauma or tenderness to her face. No bruising. Dentition intact. Scalp nontender no hematoma. No laceration. Neck and trachea nontender. No lymphadenopathy. Normal range of motion. Back and spine nontender. No bruising. Lungs clear to auscultation bilaterally. Heart regular rhythm rate about 70 no murmur. Chest wall tenderness over the upper sternum. And bruising over the right anterior lateral rib cage. No crepitus or subcu air. No bony deformity. Left chest wall nontender. Abdomen soft nontender. No bruising. No peritoneal signs. Pelvic girdle intact. Moving all 4 extremities. Right upper extremity nontender. Both lower extremities and feet are nontender. Normal flexion extension of knees and hips. Normal dorsi plantarflexion. Nontender no deformity. Left shoulder elbow and wrist are nontender. Left hand is swollen and tender primarily over the metacarpals of the ring and long fingers. Skin intact. Able to open close her hand. Chronic arthritic changes of both wrist. Lower extremities are nontender. Hips are nontender. There is no shortening or rotation. Neurologically she is awake and alert no focal motor deficits. Const Vital Signs: 07/11/24 13:59 07/11/24 14:54 07/11/24 14:58 Temperature 98 F Temperature Source Temporal Pulse Rate 72 59 L Respiratory Rate 16 20 H Blood Pressure 179/93 H 112/65 Blood Pressure Mean 121 80 Pulse Ox 97 Oxygen Delivery Method Room Air Room Air Room Air 07/11/24 15:00 07/11/24 15:18 Temperature 98 F Temperature Source Pulse Rate 66 66 Respiratory Rate 20 H 20 H Blood Pressure 112/65 Blood Pressure Mean 80 Pulse Ox 97 Oxygen Delivery Method Room Air Positive well nourished and well developed; Negative for cachectic, contractures or unkempt General Appearance ED: well developed and NAD; Negative for unkempt, cachectic or contractures Nutritional Appearance: Negative for cachectic HEENT Reports normocephalic atraumatic; Negative for trauma, contusion, hematoma or tenderness Eyes PERRL and EOMs intact bilaterally Neck full ROM, no lymphadenopathy and supple General: Negative for tenderness Chest Wall Negative for inspection of chest normal or palpation of chest normal Chest Narrative: Bruising right anterior lateral chest wall. Tenderness in that area and also the upper sternum. No crepitance or subcu air. No bony deformity. Resp normal respiratory effort, no retractions and clear to auscultation bilaterally Auscultation: Negative for rales, rhonchi, wheezes or diminished lung sounds Cardio regular rate, regular rhythm, S1 normal heart sound, S2 normal heart sound and no murmurs Rate: Negative for bradycardia or tachycardic Rhythm: Negative for abnormal rhythm Bruits: Negative for other GI non-tender, non-distended and no masses Auscultation: normoactive bowel sounds Palpation: soft; Negative for guarding or rebound tenderness present Back/Spine no CVA tenderness General Back: Negative for CVA tenderness Cervical Spine: Negative for cervical spine tenderness Lumbar Spine / Lower Back: Negative for lumbar spinal tenderness Extremity Extremity Narrative: Mild swelling left hand. Tenderness over the metacarpals of the ring and long finger. No gross bony deformity. Chronic arthritic changes of the wrist. Wrist is nontender. Normal flexion extension. She can open and close her hand. Normal touch sensation. Normal cap refill. Skins intact. Neuro oriented x3, CN's II-XII intact bilaterally, moves all extremities, no focal motor deficits and no sensory deficits noted [place] Coma Scale: document GCS findings Spontaneous Obeys Commands Oriented 15 Sensorium / Orientation: alert, oriented to person, oriented to place and oriented to time; Negative for orientation impaired, confused, lethargic or stuporous Motor Exam: strength 5/5 throughout Psych mental status grossly normal and thought process normal Appearance: Negative for unkempt Attitude: No agitated Mood & Affect: Negative for depressed, anxious or tearful Skin Lesions: no lesions Rashes: no rashes Trauma: Negative for abrasion or laceration Image ED - Body Diagram Man:  1. Tender chest wall of the upper sternum and right anterior lateral upper ribs. Small bruising. No crepitance. 2. Swelling and tenderness over the dorsum of the left hand primarily the ring and long fingers. Skin intact. Able to open and close the hand. Neurovascularly intact. MDM MDM MDM Narrative Medical decision making narrative: 74-year-old female fell last . Having chest wall pain. Rule out rib fracture and/or sternal fracture. Also injured her left hand. Triage was backed out nurses put in protocol orders for chest pain but I do not think this is cardiac chest pain or a thing is a DVT or PE. She started having the pain after she fell she has reproducible chest wall and sternal pain. Repeat exam patient doing well at 3:[address] applied a splint on her left hand due to the ring and long finger metacarpal fractures. Chest x-ray showed no obvious rib fracture or sternal fracture. She will be discharged to home. Ice to her chest wall. Ice and elevate left hand. Either follow-up with Dr. Zaragoza or Dr. Gonzalez for her metacarpal fractures of her hand. Ice and elevate. Keep the splint on. Keep it dry and clean. Use a pillow in her chest wall. She already has pain meds at home. History & Record Review Additional record(s) reviewed:: Prior inpatient record, Prior outpatient record, Prior ED visit and Prior labs Lab Data Attestation: I reviewed the patient's lab results. Lab results narrative: CBC normal white count 8. H&H 15 and 44. Platelets 235. Electrolytes show a gap of 5. Normal BUN of 7 creatinine 0.8. Glucose 92. Troponin 5. She has had the pain for days. She does not need a second troponin. Labs: Laboratory Results - last 24 hr 07/11/24 14:28 WBC 8.8 RBC 4.62 Hgb 15.1 H Hct 44.7 MCV 96.8 MCH 32.7 H MCHC 33.8 RDW Std Deviation 48.0 H RDW Coeff of Yudi 13.5 Plt Count 235 MPV 10.2 Immature Gran % (Auto) 0.200 Neut % (Auto) 59.6 Lymph % (Auto) 23.1 [place] % (Auto) 11.2 H Eos % (Auto) 5.1 H Baso % (Auto) 0.8 Absolute Neuts (auto) 5.3 Absolute Lymphs (auto) 2.04 Nucleated RBC % 0 Sodium 137 Potassium 3.9 Chloride 107 Carbon Dioxide 25.0 Anion Gap 5 BUN 7 Creatinine 0.82 Estim Creat Clear Calc 51.90 Est GFR (MDRD) Af Amer 87 Est GFR (MDRD) Non-Af 72 BUN/Creatinine Ratio 8.5 L Glucose 92 Calcium 8.9 Troponin I High Sens 5 Radiography Chest X-Ray - ED: 2 View, Read by ED Physician, Read by Radiologist, Normal, Heart, Lungs, Mediastinum, Bony Structures, No Acute Disease and Chronic Changes Diagnostic Testing: Clinical Impression(s) from Imaging Studies Chest X-Ray 07/11/24 14:02 IMPRESSION: No radiographic evidence of acute cardiopulmonary disease Reading Location: [facility] Hand X-Ray 07/11/24 14:04 IMPRESSION: Nondisplaced oblique fractures of the 3rd and 4th metacarpals with overlying soft tissue swelling. Reading Location: [facility] Chest X-Ray 07/11/24 14:54 IMPRESSION: No radiographic evidence of acute cardiopulmonary disease Reading Location: [facility] Chest x-ray, 2 views, AP and lateral, interpreted by myself and the radiologist shows no acute abnormality. No rib fractures. No pneumothorax. No obvious sternal fracture. Chronic changes. Normal mediastinum, lung mcdonald and cardiac silhouette. Left hand x-ray, 3 views, interpreted by myself shows midshaft fracture of both the ring and long finger metacarpals. Only mildly displaced. Rhythm Strip Rhythm Strip: Sinus Rhythm Rate: 68 Ectopy: None EKG Initial EKG: Attestation: I personally reviewed and interpreted this EKG as follows: Interpretation: Sinus Rhythm and No Acute Injury Pattern Comments: Normal sinus rhythm rate of 68 no acute signs of IA or ischemia. Procedures Upper Extremity Splints Upper Extremity Splint: Orthoglass Splint Fabrication: Fabricated Location: Left (Left hand AP splint with Ortho-Glass. Well-padded. Tolerated well. Mobilize due to metacarpal fractures of the left ring and left long fingers. Patient tolerated well.) Discharge Plan Triage Chief Complaint: Chest Pain ED Provider: Jorge Oneill Dx/Rx/DC Orders Clinical Impression: Fall, Hand fracture, left, Chest wall contusion Instructions: ED Chest Wall Contusion, ED Closed Hand Fracture (Adult) Prescriptions: No Action valacyclovir 1 gram tablet 1,000 mg PO TID Qty: 21 0RF prednisone 10 mg tablet 10 mg PO DAILY Qty: 30 0RF Rx Instructions: 4 tablets daily x3 days, then 3 tablets daily x3 days, then 2 tablets daily x3 days, then 1 tablet daily x3 days gabapentin 300 MG capsule 300 mg PO TID Patient Comments: nerve pain cholecalciferol (vitamin D3) [Vitamin D3] 1,000 UNIT tablet 1,000 unit PO DAILY Patient Comments: SUPPLEMENT meloxicam 15 mg tablet 15 mg PO DAILY omeprazole 40 mg Capsule,Delayed Release(Dr/Ec) 40 mg PO DAILY hydrocodone-acetaminophen 7.5-325 mg tablet 1 tab PO TID PRN PRN (Reason: Pain) Patient Comments: 1 TABLET BY MOUTH 3 TIMES A DAY NEEDED FOR PAIN latanoprost 0.005 % drops 1 drp ophthalmic (eye) DAILY ramipril 10 mg capsule 10 mg PO BID tretinoin 0.1 % cream TOPICAL simvastatin 40 mg tablet 40 mg PO DAILY timolol maleate 0.5 % drops 1 drp ophthalmic (eye) Q12H Patient Comments: 1 drop in both eyes twice a day Primary Care Provider: Darius Velez Referrals: Darius Velez DO [Primary Care Provider] - Lul Gonzalez DO [Med Staff - Active Staff] - As soon as possible Activity Restrictions/Additional Instructions: You have 2 broken bones in your left hand both the ring finger and long finger metacarpals in your palm. Ice and elevate. Use your pain medications at home you can use your oxycodone. Call and follow-up with Dr. Zaragoza local plastic surgeon who does work with broken hands or Dr. Gonzalez of [facility] Keep your splint on. Keep it dry and clean. No obvious broken ribs or sternum on your chest x-ray. Most likely bruised. Ice. Use a pillow for support. Follow-up if not improving. Print Language: Ch[place] Disposition Disposition: Home, Self Care
[2024-07-11 14:58] VITALS: BP 112/65; PULSE 59; RESP 20
[2024-07-11 15:00] VITALS: PULSE 66; RESP 20
[2024-07-11 15:18] VITALS: BP 112/65; PULSE 66; RESP 20; TEMP 36.6; O2SAT 97
[2024-07-11 16:31] LABS: Reflex Troponin-HS? (from REC) Y
== END 2024-07-11 15:46 | disposition home or self-care (01) ==
LOC: ED 15:21
PROVIDERS: Emergency Provider Emergency Medicine; PCP Family Medicine; Visit Provider Emergency Medicine
DX: S62.303A Unspecified fracture of third metacarpal bone, left hand, initial encounter for closed fracture (principal); S20.211A Contusion of right front wall of thorax, initial encounter; S62.305A Unspecified fracture of fourth metacarpal bone, left hand, initial encounter for closed fracture; W01.198A Fall on same level from slipping, tripping and stumbling with subsequent striking against other object, initial encounter; I10 Essential (primary) hypertension; K21.9 Gastro-esophageal reflux disease without esophagitis; E78.00 Pure hypercholesterolemia, unspecified; M19.032 Primary osteoarthritis, left wrist; M19.031 Primary osteoarthritis, right wrist; G89.29 Other chronic pain; Z79.899 Other long term (current) drug therapy; Z87.891 Personal history of nicotine dependence
CPT/HCPCS: 29125; 71045; 73130; 80048; 84484; 85025; 93005; 99284; A4216